=== PATIENT | male | born 1935 | race Caucasian/White ===

== ENCOUNTER 2020-02-15 14:22 | Emergency (ER) | payer MEDICARE ==
[~2020-02-15] VITALS: Ht 180.3 cm; Wt 63.5 kg
[~2020-02-15 14:22] MED LIST: CIPRO500 MG PO; COLACE 100 MG100 MG PO; FLAGYL500 MG PO; MECLIZINE HCL25 M1 PO; NORCO 5-325 TA1 EACH PO; PROCTOCREAM-HC30 G1 RC; SENOKOT-S1 TA1 PO; TRAMADOL 50 MG50 MG PO; [UNRECOGNIZED DRUG - REMARK]; [UNRECOGNIZED DRUG - REMARK]
[2020-02-15 14:35] VITALS: BP 154/62
[2020-02-15] MEDS ORDERED: KEFLEX500 M1 PO (14:39)
[2020-02-15] MEDS ORDERED: DOXYCYCLINE 10100 MG PO (14:57)
[2020-02-15] MEDS ORDERED: NORCO 5-325 TA1 EAC1 PO (14:57)
== END 2020-02-15 15:06 | disposition home or self-care (01) ==
LOC: M.ERS 14:22
DX: L03.116 Cellulitis of left lower limb (principal); Z88.1 Allergy status to other antibiotic agents; Z88.2 Allergy status to sulfonamides

== ENCOUNTER 2020-02-17 13:43 | Emergency (ER) | payer MEDICARE ==
[~2020-02-17] VITALS: Ht 180.3 cm; Wt 63.5 kg
[~2020-02-17 13:43] MED LIST changes: +DOXYCYCLINE 10100 MG PO; +KEFLEX500 M1 PO; +NORCO 5-325 TA1 EAC1 PO
[2020-02-17] MEDS ORDERED: KEFLEX500 M1 PO (14:03)
[2020-02-17 15:32] VITALS: BP 156/76
== END 2020-02-17 15:33 | disposition home or self-care (01) ==
LOC: M.ERS 13:43
DX: S61.422A Laceration with foreign body of left hand, initial encounter (principal); Z88.1 Allergy status to other antibiotic agents; Z88.2 Allergy status to sulfonamides; W26.8XXA Contact with other sharp object(s), not elsewhere classified, initial encounter; Y93.89 Activity, other specified; Y92.89 Other specified places as the place of occurrence of the external cause; Y99.8 Other external cause status